=== PATIENT | female | born 1995 | race Two or more races ===

== ENCOUNTER 2025-01-28 12:59 | Emergency (ER) | payer OTHER, MEDICAID ==
[~2025-01-28] VITALS: Ht 162.6 cm; Wt 83.6 kg
--- NOTE | 2025-01-28 13:15 | ED.PDOC ---
Musculoskeletal HPI Comments Deondre: HPI: Poor Historian. 29-year-old female presents to emergency department for evaluation of left ankle pain. Patient was getting out of her truck and twisted her left ankle landing. Patient complains of left ankle pain. Injury happened approximately 30 minutes prior to arrival. Denies any other injuries or fall or trauma. Denies any pain anywhere else in her body. Past medical history: asthma past surgical history: denies Medications: denies Allergies: nkda Social history: denies ETOH, denies tobacco use, denies drug use REVIEW OF SYSTEMS: CONSTITUTIONAL: Denies acute: fever, diaphoresis, chills, generalized weakness. HEAD: Denies acute: headache, photophobia Eyes: Denies acute: Double vision, vision loss, eye pain, eye discharge. EARS: Denies acute: tinnitus, hearing loss, ear discharge, ear pain, THROAT: Denies acute: sore throat, swelling, difficulty swallowing , pain with swallowing, change in voice. NECK: Denies acute: neck pain, neck swelling, stiff neck. HEART: Denies acute : chest pain, palpitations, LUNGS: Denies acute: SOB, wheezing, cough, hemoptysis ABDOMEN: Denies acute: abdominal pain, Nausea, Vomiting, diarrhea, melena , hematemesis, hematochezia SKIN: Denies acute: rash, redness, lesions, itchiness. EXTREMITIES: Denies acute: calf pain, numbness, tingling, weakness, Denies acute: Low back pain. Neuro: Denies acute: focal neurological deficit, motor or sensory focal neurological deficit, tremors, seizure like activity, confusion, dizziness, change in mental status, loss of bowel or bladder function, cauda equina like symptoms. : Denies acute: dysuria, hematuria, flank pain, increase in urinary frequency. PSYCH: Denies acute: hallucination, suicidal ideation, homicidal ideation. FEMALE: Denies acute: abnormal vaginal bleeding, foul odor, unusual discharge. PHYSICAL EXAM: General: ----mild----acute distress, awake and alert. Head: normocephalic, atraumatic. Neck: supple, trachea is midline, no swelling. Throat: Normal phonation. Eyes:, no erythema, no purulent discharge, no proptosis, no icterus. Heart: regular rate, regular rhythm, no significant murmur appreciated. Lungs: no apparent respiratory distress, Able to speak in full sentences. No wheezing, no rhonchi, no crackles. No stridors Clear to auscultation bilaterally. Abdomen: non tender to palpation, non distended, soft, no guarding, no rebound, + bowel sounds. Neuro: Awake, Alert, oriented to name, self, situation, follows commands GCS=15. Speech is normal. Skin: no petechia, no purpura, no cyanosis, non-pale, not jaundice. Lower extremities: --no - Pitting edema no deformity, no calf TTP. Makes eye contact. moves all four extremities. Evaluation of the area of complaint. Left ankle lateral malleoli tenderness to palpation and mild swelling. Pedal pulses palpable. Patient is neurovascularly intact in the affected extremity. Sensory and motor are present. Decreased range of motion of the left ankle joint due to pain. Face: no apparent facial droop. ED COURSE: Chief Complaint: Lower Extremity Time Seen by MD: 13:01 Reviewed Notes: Nurses Notes, Allergies Allergies: Coded Allergies: NO KNOWN ALLERGIES (Unverified , 01/28/25) Information Source: Patient Mode of Arrival: Wheelchair Location: Left Was a procedure done? Was a procedure done?: No Differential Diagnosis EXT Differential Diagnosis: Cellulitis, Deep Vein Thrombosis, Compartment Syndrome, Fracture, Sprain, Dislocation, Laceration, Gout, DJD, Myocardial Infarction, Contusion, Strain, Rheumatoid, Septic, Hernia, Neurovascular injury, Arthritis, Bursitis X-Ray, Labs, Meds, VS Vital Signs Date Time Temp Pulse Resp B/P (MAP) Pulse Ox O2 Delivery O2 Flow Rate FiO2 01/28/25 13:14 98.3 89 17 119/73 (88) [address] [address] Ph: [phone] DIAGNOSTIC IMAGING Diagnostic Imaging Report : [id number] Signed PATIENT: DIANE VAUGHAN ACCT: [id number] UNIT: [id number] : 1995 LOC: ER ROOM / BED: / AGE / SEX: 29 / F ADM STATUS: REG ER SERVICE 1307 ORDERING PHYSICIAN: SOPHIA RUDOLPH DO PROCEDURE(s): LANKL - L ANKLE 3 VIEW REASON: pain/injury ORDER NUMBER(s): [id number], ACCESSION NUMBER(s): [id number] EXAM: XR Left Ankle Complete, 3 or More Views CLINICAL INDICATION: pain/injury TECHNIQUE: Frontal, lateral and oblique views of the left ankle. COMPARISON: None FINDINGS: BONES/JOINTS: See below. SOFT TISSUES: Soft tissue swelling without acute fracture. OTHER FINDINGS: . IMPRESSION: 1. Soft tissue swelling without acute fracture. 2. If symptoms persist, further evaluation with CT is recommended. ATED BY: TRUDY BOYLE MD DICTATED DATE/TIME: 01/28/251342 SIGNED BY: TRUDY BOYLE MD SIGNED DATE/TIME: 01/28/251342 CC: Time of 1ST Reevaluation: 14:14 Reevaluation 1ST: Unchanged Patient Education/Counseling: Diagnosis, Treatment Family Education/Counseling: No Family Present Comments Patient presented with the above HPI.---left ankle pain/injury---workup was initiated. patient was found with the above mentioned diagnosis. the following medications were ordered: please refer to order lists of meds and tests obtained by myself Dr. Rudolph. Patient ED course and VS have been stabilized. Patient has been reassessed in the ED and remained in a stable condition. Pertinent incidental findings were discussed with the patient and/or family. Patient/family voices understanding and is agreeable with plan. Patient has been observed in the ED adequate length of time to insure improvement/stability. Escalation of care considered: Consideration of escalation to observation or admission Splint was placed. Patient was DISCHARGED home in a stable condition. All the reports of any imaging studies that were ordered by myself were reviewed by myself. Departure 1 Departure Time of Disposition: 14:13 Impression: Primary Impression: Left ankle sprain Disposition: 01 HOME / SELF CARE / HOMELESS Condition: Stable Additional Instructions: Additional discharge instructions: You MUST follow-up with your primary care/family doctor in 1 to 2 days. If you are unable to see your primary care/family doctor, please return to our emergency room for re-assessment and re-evaluation in 1 to 2 days. Return to the emergency room here in our facility or to the nearest ER [facility] if your symptoms change or worsen. CONSULTATIONS: you MUST Follow-up for consultation as soon as possible with: orthopedic doctor in 1-2 days. Please call for appointment. You MUST call the consultants office yourself to make an appointment. You may need to arrange that through your insurance and/or your primary/family doctor. If you are unable to see the communication consultant in 1 to 2 days, you must return to our emergency room (or any other ER of your choice) for re-assessment and re- evaluation. Adequate fluid hydration. Leg elevation, use [id number] Tylenol ibuprofen with food as instructed for pain control. Continue wearing his splint for support to promote proper and faster healing. Below is a copy of your radiological report for follow up: [place] [address] Ph: [phone] DIAGNOSTIC IMAGING Diagnostic Imaging Report : [id number] Signed PATIENT: DIANE VAUGHAN ACCT: [id number] UNIT: [id number] : 1995 LOC: ER ROOM / BED: / AGE / SEX: 29 / F ADM STATUS: REG ER SERVICE 1307 ORDERING PHYSICIAN: SOPHIA RUDOLPH DO PROCEDURE(s): LANKL - L ANKLE 3 VIEW REASON: pain/injury ORDER NUMBER(s): [id number], ACCESSION NUMBER(s): [id number] EXAM: XR Left Ankle Complete, 3 or More Views CLINICAL INDICATION: pain/injury TECHNIQUE: Frontal, lateral and oblique views of the left ankle. COMPARISON: None FINDINGS: BONES/JOINTS: See below. SOFT TISSUES: Soft tissue swelling without acute fracture. OTHER FINDINGS: . IMPRESSION: 1. Soft tissue swelling without acute fracture. 2. If symptoms persist, further evaluation with CT is recommended. ATED BY: TRUDY BOYLE MD DICTATED DATE/TIME: 01/28/25 1343 SIGNED BY: TRUDY BOYLE MD SIGNED DATE/TIME: 01/28/25 134 CC: Discharged With: Self Critical Care Note Critical Care Time?: No I personally scribed for SOPHIA RUDOLPH DO ([email or web address]) on 4/5/25 at 14:11. Electronically submitted by Portia Pablo ([email or web address]). SOPHIA RUDOLPH DO Jan 28, 2025 13:15
--- NOTE | 2025-01-28 13:46 | DVH ---
EXAM: XR Left Ankle Complete, 3 or More Views CLINICAL INDICATION: pain/injury TECHNIQUE: Frontal, lateral and oblique views of the left ankle. COMPARISON: None FINDINGS: BONES/JOINTS: See below. SOFT TISSUES: Soft tissue swelling without acute fracture. OTHER FINDINGS: . IMPRESSION: 1. Soft tissue swelling without acute fracture. 2. If symptoms persist, further evaluation with CT is recommended.
[2025-01-28 14:11] VITALS: PULSE 68; RESP 16; O2SAT 96
[2025-01-28] MEDS: HYDROcodone-ACET 5/325MG TAB PO ONE (14:15)
[2025-01-28 14:43] VITALS: BP 115/70; PULSE 85; RESP 16; TEMP 98.9; O2SAT 98
== END 2025-01-28 14:44 | disposition home or self-care (01) ==
LOC: ER 12:59
DX: S93.402A Sprain of unspecified ligament of left ankle, initial encounter (principal); J45.909 Unspecified asthma, uncomplicated; X58.XXXA Exposure to other specified factors, initial encounter; Y93.89 Activity, other specified; Y92.89 Other specified places as the place of occurrence of the external cause; Y99.8 Other external cause status
CPT/HCPCS: 29515; 73610